=== PATIENT | female | born 1995 | race Two or more races ===

== ENCOUNTER 2017-06-22 21:00 | Emergency (ER) | payer BC ==
[~2017-06-22] VITALS: Ht 167.6 cm; Wt 59.0 kg
[2017-06-22 21:09] VITALS: BP 144/99
[2017-06-23] MEDS ORDERED: HYDROcodone-ACET 5/325MG TAB PO ONE (00:15)
== END 2017-06-23 01:23 | disposition home or self-care (01) ==
LOC: ER 21:00 → EDBD 21:00 → ER 06-23 01:23
DX: S13.4XXA Sprain of ligaments of cervical spine, initial encounter (principal); M62.838 Other muscle spasm; M25.551 Pain in right hip; V43.52XA Car driver injured in collision with other type car in traffic accident, initial encounter; Y93.89 Activity, other specified; Y92.89 Other specified places as the place of occurrence of the external cause; Y99.8 Other external cause status
CPT/HCPCS: 73030; 73502